=== PATIENT | male | born 1975 | race Caucasian/White ===

== ENCOUNTER → 2018-06-03 21:09 | Outpatient (CLI) | payer BC, SELFPAY ==
[2018-06-03 21:30] LABS: Absolute Neutrophil Count 2.7 X10^3/uL (2.0-7.7); Basophil# 0.03 X10^3/uL; Basophil% 0.6 % (0-1); Eosinophil# 0.12 X10^3/uL; Eosinophils% 2.4 % (0-5); Hematocrit 46.2 % (40-54); Hemoglobin 16.4 g/dl (13.0-16.5); Lymphocyte % 37.4 % (19-41); Mean Corp Hgb Conc 35.5 g/gl (32-36); Mean Corpuscular Hgb 33.7 pg (27.0-32.0); Mean Corpuscular Volume 94.9 fL (80-94); Mean Platelet Vol. 11.6 fl (6.2-12.0); Monocyte# 0.37 X10^3/uL; Monocyte% 7.3 % (0-10); Neutrophil # 2.65 X10^3/uL (2.7-7.7); Neutrophil % 52.1 % (47-70); Platelet Count 186 K/mm3 (150-450); RBC Distribution Width CV 12.6 % (11.6-14.6); RBC Distribution Width SD 42.8 fl (35.1-43.9); Red Blood Count 4.87 M/mm3 (4.6-6.2); White Blood Count 5.1 K/mm3 (4.4-11.0)
[2018-06-03 21:31] LABS: POSITIVE COUNT NO; POSITIVE DIFFERENTIAL NO; POSITIVE MORPHOLOGY NO
[2018-06-03 21:36] LABS: ALB/GLOB Ratio 1.6 RATIO (0.9-2.4); AST(SGOT) 26 U/L (15-37); Alanine Aminotransfer ALT/SGPT 25 U/L (16-61); Albumin, Serum 4.3 g/dL (3.2-5.0); Alkaline Phosphatase 71 U/L (45-117); Anion Gap 7 (5-15); BUN 15 mg/dL (7-18); BUN/Creat Ratio 14.7 RATIO (10-20); Calcium,Total 9.1 mg/dL (8.5-10.1); Chloride 104 mmol/L (98-107); Creatinine, Serum 1.02 mg/dL (0.70-1.30); EST Glomerular Filtration Rate 84 mL/min (>60); Est Glom Filt Rate - Afr Amer 102 mL/min (>60); Globulin 2.7 g/dL (2.2-4.2); Glucose 80 mg/dL (74-106); Potassium 4.1 mmol/L (3.5-5.1); Sodium Level 142 mmol/L (136-145)
== END ==
PROVIDERS: Referring Provider Nurse Practitioner; Visit Provider Nurse Practitioner
DX: K40.90 Unilateral inguinal hernia, without obstruction or gangrene, not specified as recurrent (principal); R10.31 Right lower quadrant pain
CPT/HCPCS: 80053; 85025

== ENCOUNTER → 2023-08-20 | Outpatient (CLI) | payer OTHER, SELFPAY ==
--- OUTSIDE RECORDS SUMMARY | 2023-08-20 21:23 | XMS RPT_ITS | CCD ---
Author Name Unknown Address [address] [place] [address] [place] [id number] Organization [facility] Care Team Providers Care Local City Driver Name Role Phone REGINALDO, ERIBERTO L Unavailable Unavailable HAIR, ERIBERTO L Unavailable Unavailable JONES, HOANG E Unavailable Unavailable JONES, HOANG E Unavailable Unavailable JAIMIE HARDEN (TREVIN) Unavailable Unavailable JONES, HOANG E Unavailable Unavailable JONES, HOANG E Unavailable Unavailable Problems Problem Classification Problem Date Documented Da te Episodic/Chronic Abdominal hernia (1 source) Unilateral inguinal hernia, without obstruction or gangrene, not specified as recurrent; Translations: [Unilateral inguinal hernia, without obstruction or gangrene, not specified as recurrent] Onset: 07-25-2018 Episodic Abdominal pain (1 source) Right lower quadrant pain; Translations: [Right lower quadrant pain] Onset: 06-17-2018 Episodic Biliary tract disease (1 source) Cholesterolosis of gallbladder; Translations: [Cholesterolosis of gallbladder] Onset: 07-11-2018 Episodic Other gastrointestinal disorders (1 source) Abdominal distension (gaseous); Translations: [Abdominal distension (gaseous)] Onset: 07-09-2018 Episodic Results Test Name Value Interpretation Reference Range Facil ity Encounters Encounter Date Encounter Type Care Provider Facility Start: 07-25-2018 End: 07-25-2018 Patient encounter procedure HOANG JONES [facility] Start: 07-11-2018 [facility]: 07-11-2018 End: 07-12-2018 Patient encounter procedure JAIMIE Oconnor (TREVIN) FINA [facility] Start: 07-09-2018 Patient encounter procedure HOANG Lloyd JONES [facility] Start: 06-17-2018 Patient encounter procedure ERIBERTO [facility] Summary Purpose Family History No Family History Records FoundNo Family History Records Found Advance Directives No Advanced Directives Records FoundNo Advanced Directives Records Found Procedure Findings Note HNO ID: [id number]: Fran Montalvovice: General SurgeryAuthor Type: PhysicianType: Brief Op NoteFiled: 07/25/2018 12:41 PMNote Text:BRIEF OPERATIVE / PROCEDURE NOTELOG ID: [id number]/PROCEDURE DATE: 07/25/2018INCISION/PROCEDURE START TIME: 11:54 AMINCISION CLOSE/PROCEDURE END TIME: 12:37 PMSURGEON(S)/PROCEDURALIST(S) AND ELECTRICAL MAINTENANCE SUPERVISOR(S):Surgeon(s) and Role: * Hoang Jones - PrimaryRegistered Nurse Pin Cleaner: Lisa (Rn) DAIN MckinneyURGERY/PROCEDURE(S): lap TEPP RIH repair with meshANESTHESIA: GeneralFINDINGS: see reportESTIMATED BLOOD LOSS: minSPECIMENS: NoneCOMPLICATIONS: NonePRE-OP/PRE-PROCEDURE DIAGNOSIS: RIHPOST-OP/POST-PROCEDURE DIAGNOSIS: Right inguinal hernia# [id number]: Hoang Jones MD PATIENT NAME: Martin LiuDATE: July 25, 2018 : 12:36 PM PAGER/CONTACT #: Additional Source Comments (unrecognized sect ion and content) No Status Records FoundNo Status Records Found INFORMATION SOURCE (unrecogn ized section and content) DATE CREATED AUTHOR AUTHOR'S ORGANIZ ATION 10/10/2021 [facility] FOR RECORDS PERTAINING TO PATIENTS WHO ARE OR HAVE BEEN ENROLLED IN A CHEMICAL DEPENDENCY/SUBSTANCEABUSE PROGRAM, SOME INFORMATION MAY BE OMITTED. This clinical summary was aggregated from multiple sources. Caution should be exercised in using it in the provision of clinical care. This summary normalizes information from multiple sources, and as a consequence, information in this document may materially change the coding, format and clinical context of patient data. In addition, data may be omitted in some cases. CLINICAL DECISIONS SHOULD BE BASED ON THE PRIMARY CLINICAL RECORDS. [employer] provides no warranty or guarantee of the accuracy or completeness of information in this document.
[2023-08-20 21:38] LABS: Absolute Lymphocyte Count 2.49 X10^3/uL (0.83-4.51); Absolute Neutrophil Count 3.4 X10^3/uL (2.0-7.7); Basophil# 0.05 X10^3/uL; Basophil% 0.8 % (0-1); Eosinophil# 0.05 X10^3/uL; Eosinophils% 0.8 % (0-5); Hematocrit 51.2 % (40-54); Hemoglobin 17.3 g/dL (13.0-16.5); Lymphocyte # 2.49 X10^3/ul (0.83-4.51); Lymphocyte % 38.6 % (19-41); Mean Corp Hgb Conc 33.8 g/dL (32-36); Mean Corpuscular Hgb 32.1 pg (27.0-32.0); Mean Platelet Vol. 10.9 fl (6.2-12.0); Monocyte# 0.44 X10^3/uL; Monocyte% 6.8 % (0-10); NRBC Flagged by Analyzer 0 % (0-5); Neutrophil # 3.41 X10^3/uL (2.7-7.7); Neutrophil % 52.8 % (47-70); Platelet Count 236 K/mm3 (150-450); RBC Distribution Width SD 42.4 fl (35.1-43.9); Red Blood Count 5.39 M/mm3 (4.6-6.2); White Blood Count 6.5 K/mm3 (4.4-11.0)
[2023-08-20 22:03] LABS: ALB/GLOB Ratio 1.2 RATIO (0.9-2.4); AST(SGOT) 24 U/L (15-37); Alanine Aminotransfer ALT/SGPT 25 U/L (16-61); Albumin, Serum 4.2 g/dL (3.2-5.0); Alkaline Phosphatase 107 U/L (45-117); Anion Gap 3 (5-15); BUN 18 mg/dL (7-18); BUN/Creat Ratio 17.3 RATIO (10-20); Calcium,Total 9.2 mg/dL (8.5-10.1); Chloride 106 mmol/L (98-107); Creatinine, Serum 1.04 mg/dL (0.70-1.30); EST Glomerular Filtration Rate 81 mL/min (>60); Est Glom Filt Rate - Afr Amer 98 mL/min (>60); Globulin 3.4 g/dL (2.2-4.2); Glucose 103 mg/dL (74-106); Potassium 4.7 mmol/L (3.5-5.1); Protein, Total 7.6 g/dL (6.4-8.2); Sodium Level 139 mmol/L (136-145); Thyroid Stim Hormone (TSH) 1.44 uIU/mL (0.358-3.74)
[2023-08-21 15:32] LABS: Vitamin B12 528 pg/mL (211-911)
== END | disposition home or self-care (01) ==
PROVIDERS: Visit Provider Nurse Practitioner
DX: Z00.00 Encounter for general adult medical examination without abnormal findings (principal); M25.50 Pain in unspecified joint; R53.83 Other fatigue; R79.89 Other specified abnormal findings of blood chemistry
CPT/HCPCS: 80053; 82607; 84403; 84443; 85025